=== PATIENT | female | born 1975 | race Caucasian/White ===

== ENCOUNTER 2020-10-21 08:00 | Inpatient (IN) | payer OTHER ==
[~2020-10-21] VITALS: Ht 154.9 cm; Wt 63.5 kg
== END 2020-10-29 10:12 | disposition home or self-care (01) | DRG 743 ==
LOC: O/R 10-27 05:15 → OB/GYN 10-27 05:15
PROVIDERS: ADMIT Obstetrics & Gynecology; ATTEND Obstetrics & Gynecology
PROC: 0UT10ZZ Resection of Left Ovary, Open Approach (ICD-10-PCS; 2020-10-27)
PROC: 0UT60ZZ Resection of Left Fallopian Tube, Open Approach (ICD-10-PCS; 2020-10-27)
PROC: 0UN00ZZ Release Right Ovary, Open Approach (ICD-10-PCS; 2020-10-27)
PROC: 0DNW0ZZ Release Peritoneum, Open Approach (ICD-10-PCS; 2020-10-27)
PROC: 0UT90ZL Resection of Uterus, Supracervical, Open Approach (ICD-10-PCS; principal; 2020-10-27 05:15)
DX: D25.1 Intramural leiomyoma of uterus (principal); D25.2 Subserosal leiomyoma of uterus; N83.8 Other noninflammatory disorders of ovary, fallopian tube and broad ligament; N73.6 Female pelvic peritoneal adhesions (postinfective); N99.4 Postprocedural pelvic peritoneal adhesions; D50.8 Other iron deficiency anemias; N83.02 Follicular cyst of left ovary; N83.12 Corpus luteum cyst of left ovary; N83.292 Other ovarian cyst, left side; D26.1 Other benign neoplasm of corpus uteri